=== PATIENT | female | born 1955 | race Caucasian/White ===

== ENCOUNTER 2016-10-30 15:14 | Emergency (ER) | payer OTHER ==
[2016-10-30 15:22] VITALS: BP 170/89
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
--- OUTSIDE RECORDS SUMMARY | 2016-10-30 15:39 | XMS REPORT | Continuity of Care Document ---
:1955 Author Organization [facility] Address [place] [address] Care Team Providers Name Role Phone Edie Hicks Primary Care Provider [phone] Source Comments This disclosure is being made pursuant to the [employer] program and maynot contain all information available regarding this patient.[facility] Active Allergies and Adverse Reactions Allergen Noted Date Severity Reactions Comments Latex 12/11/2013 Low Rash Sulfa Antibiotics 12/11/2013 Medium Nausea And Vomiting Current Medications Be aware that medications may not be up to date as of this document. Alwaysverify current medications with the patient. Prescription Sig. Disp. Refills Start Date End Date Status loperamide (IMODIUM) Take 2 mg by Active 2 MG capsule mouth. triamterene-hydrochlo Take by Active rothiazide mouth daily. (MAXZIDE-25) 37.5-25 MG per tablet levothyroxine 3 11/11/2014 Active (SYNTHROID, LEVOTHROID) 125 MCG tablet ramipril (ALTACE) 10 5 10/03/2014 Active MG capsule verapamil (CALAN-SR) Take 240 mg 5 11/28/2014 Active 240 MG CR tablet by mouth daily. Cholecalciferol 5000 Take 5,000 Active UNITS capsule Units by mouth daily. tramadol (ULTRAM-ER) TAKE ONE 30 tablet 5 06/09/2016 Active 200 MG 24 hr tablet TABLET BY MOUTH DAILY etanercept (ENBREL Inject 1 mL 4 Syringe 11 07/23/2016 Active SURECLICK) 50 MG/ML into the skin SOAJ auto-injector once a week. traMADol (ULTRAM) 50 Take 1-2 240 tablet 3 10/07/2016 Active MG tablet tablets (50-100 mg total) by mouth every 6 (six) hours as needed for Pain. nitrofurantoin, Take 1 14 capsule 0 10/28/2016 Active macrocrystal-monohydr capsule by 7 ate, (MACROBID) 100 mouth 2 (two) MG capsule times daily. traMADol (ULTRAM) 50 Take 1-2 240 tablet 3 12/04/2015 Discontinued MG tablet tablets by 7 mouth every 6 (six) hours as needed for Pain. Active Problems Problem Noted Date Colitis 06/17/2016 Long-term use of immunosuppressant medication 06/12/2015 Seronegative rheumatoid arthritis (HCC) 12/11/2014 Rheumatoid arthritis(714.0) 12/12/2013 Encounter for long-term (current) use of other medications 12/12/2013 External thrombosed hemorrhoids 09/24/2013 Overview: Overview: KARAN RODRIGUEZ MD Diarrhea 07/04/2013 Overview: Overview: KARAN RODRIGUEZ MD Overview: KARAN RODRIGUEZ MD Noninfectious gastroenteritis and colitis 12/28/2012 Overview: Overview: KARAN RODRIGUEZ MD Family history of colonic polyps 12/20/2012 Overview: Overview: KARAN RODRIGUEZ MD Special screening for malignant neoplasms, colon 12/20/2012 Overview: Overview: KARAN RODRIGUEZ MD Esophageal reflux 02/09/2012 Overview: Overview: GABO ARREOLA MD Most Recent Encounters Date Type Specialty Providers Description 10/28/2016 Telephone Rheumatology Kianna Hough CMA Other 10/07/2016 Refill Rheumatology Chen Mckee, RN Social History Tobacco Use Types Packs/Day Years Used Date Never Smoker Smokeless Tobacco: Never Used Alcohol Use Drinks/Week oz/Week Comments No Alcoholic Drinks/day: ALCOHOL USE: NON-DRINKER Last Filed Vital Signs Vital Sign Reading Time Taken Blood Pressure 139/89 06/17/2016 3:46 PM RN SANE Pulse 81 06/17/2016 3:46 PM RN SANE Temperature 35.8 C (96.5 F) 11/12/2013 2:59 PM CDT Respiratory Rate - - Height 1.651 m (5' 5") 12/11/2015 3:39 PM CDT Weight 112.946 kg (249 lb) 06/17/2016 3:46 PM RN SANE Body Mass Index 41.44 06/17/2016 3:46 PM RN SANE Oxygen Saturation - - Plan of Care Date Type Specialty Providers Description 12/15/2016 Appointment Rheumatology Gabo Arreola MD [address] [place] [id number] [phone] (Fax) Health Maintenance Due Date Last Done Comments Hepatitis C Screening 07/04/1973 Tetanus/Pertussis (1 - Tdap) 07/04/1974 Pap Smear 07/04/1976 Mammogram 07/04/2005 Well Adult Visit 07/04/2005 Zoster Vaccine 60+ 2015 Influenza Immunization (#1) 2016 Colonoscopy 12/26/2022 12/26/2012, 08/01/2006 Results from Last 3 Months Not on file Insurance Payer Benefit Plan / Group Subscriber ID Type Phone Address [facility] [id number] [address] [place] [address] [phone] [place] [id number]
--- OUTSIDE RECORDS SUMMARY | 2016-10-30 15:39 | XMS REPORT | Summary of Care ---
:1955 Author Organization [facility] Address [address] [facility] [address] [place] [address] Care Team Providers Name Role Phone Rinku Bazan Primary Care Physician Encounter Date(s): 09/09/15 - 09/09/15 [facility], [address] [facility] [place], [place] [address] Discharge Disposition: 01 Discharged to Home or Self Care Attending Physician: Georgette Damon MD Referring Physician: Georgette Damon MD Vital Signs No data available for this section Problem List Condition Effective Dates Status Health Status Informant 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 HISTORY OF(Confirmed) Colitis(Confirmed) Active Endometriosis(Confirmed) Active Hypertension(Confirmed) Active History of abnormal cervical Active Papanicolaou smear(Confirmed) Hypothyroid(Confirmed) Active (Confirmed) 02/12/78 - 11/19/78 Resolved (Confirmed) 01/20/74 - 10/27/74 Resolved Rheumatoid arthritis(Confirmed) Active 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) HISTORY OF(Confirmed) Allergies, Adverse Reactions, Alerts Substance Reaction Severity Status sulfa drugs VOMITING Severe Active Medications Altace 10 mg oral capsule cap(s), Oral, BID, CAITLIN GARIBAY 0 Refill(s), Start Date: 02/21/14 7:55:00 CDT Special Instructions: CAITLIN GARIBAY Start Date: 02/21/14 Status: Ordereddicyclomine 10 mg oral capsule cap(s), Oral, RANJANA SWARTZ, 0 Refill(s), Start Date: 02/21/14 7:55:00 CDT Special Instructions: RANJANA SWARTZ Start Date: 02/21/14 Stop Date: 09/09/15 Status: DiscontinuedEnbrel Prefilled Syringe 50 mg/mL subcutaneous solution 1 mL, Subcutaneous, RANJANA SWARTZ, # 8 EA, 0 Refill(s), Start Date: 8:04:00 CDT Special Instructions: RANJANA SWARTZ Start Date: 02/21/14 Status: OrderedImodium A-D mg, RANJANA SWARTZ, 0 Refill(s), Start Date: 02/21/14 7:55:00 CDT Special Instructions: RANJANA SWARTZ Start Date: 02/21/14 Status: OrderedLasix 20 mg oral tablet tab(s), Oral, Daily, RANJANA SWARTZ, Start Date: 02/21/14 7:55:00 CDT Special Instructions: RANJANA SWARTZ Start Date: 02/21/14 Stop Date: 09/09/15 Status: Discontinuedlevothyroxine 125 mcg (0.125 mg) oral tablet tab(s), Oral, Daily, RANJANA SWARTZ, 0 Refill(s), Start Date: 02/21/14 7:55: 00 CDT Special Instructions: RANJANA SWARTZ Start Date: 02/21/14 Status: OrderedtraMADol 50 mg oral tablet tab(s), Oral, RANJANA SWARTZ, Start Date: 02/21/14 7:55:00 CDT Special Instructions: RANJANA SWARTZ Start Date: 02/21/14 Status: Orderedtriamterene-hydrochlorothiazide 37.5 mg-25 mg oral tablet tab(s), Oral, Daily, RANJANA SWARTZ, 0 Refill(s), Start Date: 02/21/14 7:55: 00 CDT Special Instructions: RANJANA SWARTZ Start Date: 02/21/14 Status: Orderedverapamil RANJANA SWARZT, 0 Refill(s), Start Date: 02/21/14 7:55:00 CDT Special Instructions: RANJANA SWARTZ Start Date: 02/21/14 Status: OrderedVitamin D2 Oral, RANJANA SWARTZ, 0 Refill(s), Start Date: 02/21/14 7:55:00 CDT Special Instructions: RANJANA SWARTZ Start Date: 02/21/14 Status: Ordered Results No data available for this section Immunizations No data available for this section Procedures Procedure Date Related Diagnosis Body Site Papanicolaou smear taken1 07/24/12 Mammogram - screening2 07/31/11 Biopsy of vulva3 07/16/11 Biopsy of vulva4 08/26/08 LEEP procedure of cervix5 09/14/07 LOOP electro excision of cervix6 06/05/07 Colonoscopy 08/01/06 Colposcopy7 07/19/06 Bone density scan 06/28/06 Endometrial biopsy8 05/29/03 Endometrial biopsy9 05/29/02 LOOP electro excision of 02/28/02 Appendectomy 1978 Cholecystectomy 1978 Tubal ligation 1978 Carpal tunnel release (LEFT) Carpal tunnel release (RIGHT) Repair of cleft lip 1Clinician provided ICD9: V76.2 ; Screening for malignant neoplasm of the cervix DIAGNOSIS: NEGATIVE FOR INTRAEPITHELIAL LESION AND [id number] HISTORY: HX: IVANNA VULVA FINAL PATHOLOGIC DIAGNOSIS: MODERATE SQUAMOUS CELLL DYSPLASIA *(IVANNA I TO II) 4CLINICAL HISTORY: B-9 APPEARING VULVAR SKIN LESION. PATHOLOGIC DIAGNOSIS: MILD DQUAMOUS DYSPLASIA (IVANNA I)5CLINICAL HISTORY: [id number] HISTORY: [id number] HISTORY: LGSIL ON [id number] HISTORY: HISTORY SIMPLE HYPERPLASIA. HAS BEEN ON MDDA.9CLINICAL HISTORY: MENORRHAGIA, POST COITAL BLEEDING.10CLINICAL HISTORY: HGSIL ON OS PAP Social History No data available for this section Assessment and Plan No data available for this section
== END 2016-10-30 15:56 | disposition home or self-care (01) ==
LOC: ER 15:14
DX: H10.32 Unspecified acute conjunctivitis, left eye (principal); S50.11XA Contusion of right forearm, initial encounter; V43.52XA Car driver injured in collision with other type car in traffic accident, initial encounter